=== PATIENT | female | born 1990 | race Caucasian/White ===

== ENCOUNTER 2016-03-28 07:51 | Inpatient (IN) | payer MEDICAID, OTHER ==
[~2016-03-28] VITALS: Ht 165.1 cm; Wt 111.7 kg
[~2016-03-28 07:51] MED LIST: OXYTOCIN 30 UNITS/LR 500 ML BAG IV ONE; PREN1TAB49
[2016-03-28 07:57] VITALS: BP 118/60; PULSE 85; RESP 18
[2016-03-28] MEDS ORDERED: CEFAZOLIN 2 GM/50 ML (PMX) 50 ML IV SCH (08:30)
[2016-03-28] MEDS ORDERED: OXYTOCIN 30 UNITS/LR 500 ML IV SCH (08:30)
[2016-03-28] MEDS ORDERED: OXYTOCIN 30 UNITS/LR 500 ML IV PRN ×2 (08:30→17:30)
[2016-03-28] MEDS ORDERED: METHYLERGONOVINE 0.2 MG INJ IM PRN ×2 (08:30→17:30)
[2016-03-28] MEDS ORDERED: CARBOPROST 250 MCG INJ IM PRN ×2 (08:30→17:30)
[2016-03-28] MEDS ORDERED: MISOPROSTOL 200 MCG TAB PR PRN ×2 (08:30→17:30)
[2016-03-28] MEDS ORDERED: TERBUTALINE 1 MG/ML INJ SC STA (08:36)
[2016-03-28] MEDS ORDERED: TERBUTALINE 1 ML ONE (08:38)
--- NOTE | 2016-03-28 08:44 | RADRPT ---
PROCEDURE: US OB. CLINICAL INDICATION: Contractions , pain TECHNIQUE: Transabdominal views of the pelvis are available for review. COMPARISON: No prior studies are available for comparison. FINDINGS: There is a single intrauterine gestation in a vertex position. The heart rate is present at 150 bpm. The placenta is fundal. There is no evidence of placental abruption or previa.. RPTAT: AA IMPRESSION: Placenta is fundal, grade II. .Quinton Terry MD, MD Date Time Electronically viewed and signed by .Quinton Terry MD, MD on 03/28/2016 08:44 .S/
[2016-03-28] MEDS: LACTATED RINGER'S 1,000 ML IV SCH ×2 (08:45→10:24)
[2016-03-28] MEDS ORDERED: TERBUTALINE 1 MG/ML INJ SC PRN (09:05)
[2016-03-28 09:44] LABS: BASOPHILS % 0.2 % (0.0-2.0); EOSINOPHILS # 0.1 10^3/ul (0.0-0.5); HEMATOCRIT 29.4 % (37.0-47.0); LYMPHOCYTES # 0.9 10^3/ul (0.8-2.9); LYMPHOCYTES % 10.2 % (15.0-51.0); MEAN CORPUSCULAR HEMOGLOBIN 32.1 pg (29.0-33.0); MEAN CORPUSCULAR HGB CONC 34.1 g/dl (32.0-37.0); MEAN CORPUSCULAR VOLUME 94.2 fl (82.0-101.0); MEAN PLATELET VOLUME 9.7 fl (7.4-10.4); MONOCYTE # 0.5 10^3/ul (0.3-0.9); MONOCYTES % 6.2 % (0.0-11.0); NEUTROPHIL # 7.3 10^3/ul (1.6-7.5); NEUTROPHILS % 82.4 % (39.0-77.0); PLATELET COUNT 123 10^3/UL (140-440); RED BLOOD COUNT 3.12 10^6/ul (4.20-5.40); RED CELL DISTRIBUTION WIDTH 13.8 % (11.5-14.5); UNCORRECTED WBC 8.9 10^3/ul (4.8-10.8); WHITE BLOOD COUNT 8.9 10^3/ul (4.8-10.8)
[2016-03-28 09:47] LABS: CONDITION 1
[2016-03-28] MEDS ORDERED: CEFTRIAXONE 2 GM INJ IM ONE (10:00)
[2016-03-28 10:01] LABS: INR 0.97; PROTIME 12.9 Sec (12.2-14.2)
[2016-03-28 10:02] LABS: PARTIAL THROMBOPLASTIN TIME 28.6 Sec (25.0-35.0)
[2016-03-28 10:58] LABS: OPIATES Positive (NEGATIVE)
[2016-03-28 11:07] LABS: BARBITURATES Negative (NEGATIVE); BENZODIAZEPINES Negative (NEGATIVE); COCAINE Negative (NEGATIVE)
[2016-03-28 11:26] LABS: CANNABINOIDS Positive (NEGATIVE)
[2016-03-28 11:46] LABS: ALBUMIN 2.1 g/dl (3.3-4.9)
[2016-03-28 11:47] LABS: POTASSIUM 3.7 mmol/L (3.5-5.1)
[2016-03-28 11:49] LABS: ALBUMIN/GLOBULIN RATIO 0.87; BILIRUBIN,INDIRECT 0.1 mg/dl (0-1.1); BILIRUBIN,TOTAL 0.1 mg/dl (0.2-1.3); CREATININE 0.55 mg/dl (0.44-1.00); TOTAL PROTEIN 4.5 g/dl (6.1-8.1)
[2016-03-28 11:50] LABS: CALCIUM 8.2 mg/dl (8.4-10.2); URIC ACID 4.5 mg/dl (3.1-7.9)
[2016-03-28] MEDS ORDERED: PHENYLephrine (100 MCG/ML) 5ML SYG ONE ×2 (12:09→13:01)
[2016-03-28] MEDS ORDERED: OXYTOCIN 10 UNIT INJ ONE (12:09)
[2016-03-28] MEDS ORDERED: ONDANSETRON 4 MG INJ ONE (12:09)
[2016-03-28] MEDS ORDERED: morphine SULFATE/PF (10 MG/10 ML) INJ ONE (12:09)
[2016-03-28 12:52] LABS: ADD UMIC YES; URINE BILIRUBIN (Dip) NEGATIVE (NEGATIVE); URINE BLOOD (Dip) NEGATIVE (NEGATIVE); URINE COLOR LT. YELLOW (YELLOW); URINE GLUCOSE (Dip) NEGATIVE (NEGATIVE); URINE KETONES (Dip) NEGATIVE (NEGATIVE); URINE LEUKOCYTE ESTERASE (Dip) 1+ (NEGATIVE); URINE NITRITE (Dip) NEGATIVE (NEGATIVE); URINE TOTAL PROTEIN (Dip) NEGATIVE (NEGATIVE); URINE UROBILINOGEN (Dip) 0.2 E.U./dL (0.1-1.0)
[2016-03-28 13:12] LABS: BACTERIA,URINE FEW; URINE RBCS NONE SEEN /HPF (0)
--- NOTE | 2016-03-28 14:42 | TRIAGE ---
OB Triage Datetime Report Generated by CPN: 03/28/2016 14:41 Datetime: 03/28/2016 12:28 Comments: FHT POST ANESTHESIA AT 160 BPM Datetime: 03/28/2016 11:55 Labor Evaluation Frequency: IRREG Monitor Mode: External Duration (sec)2399: 50-90 Pattern: Normal: <= 5 Contractions in 10 Minutes Resting Tone Jagual: Relaxed Heart Rate FHR Baseline Rate: 150 Monitor Mode: External US FHR Baseline Changes: No Baseline Change Variability: Moderate 6-25 bpm Accelerations: 15X15 Decelerations: None Category: Category I Datetime: 03/28/2016 11:11 Labor Evaluation Frequency: IRREG Monitor Mode: External Duration (sec)2399: 50-90 Pattern: Normal: <= 5 Contractions in 10 Minutes Resting Tone Jagual: Relaxed Heart Rate FHR Baseline Rate: 150 Monitor Mode: External US Variability: Moderate 6-25 bpm Accelerations: 15X15 Category: Category I Datetime: 03/28/2016 09:29 Monitor Mode: External Pattern: Normal: <= 5 Contractions in 10 Minutes Resting Tone Jagual: Relaxed Contraction Comments: PT. SLEEPING THROUGH UC'S Heart Rate FHR Baseline Rate: 160 Monitor Mode: External US FHR Baseline Changes: Tachycardia Variability: Moderate 6-25 bpm Accelerations: 15X15 Decelerations: None Category: Category II Pain Assessment Pain Scale: 5 Pain Presence: Intermittent Pain Type: Contraction Pain Location: Abdomen Pain Relief Measures: Comfort Measures Datetime: 03/28/2016 08:40 Labor Evaluation Frequency: 1-5 Monitor Mode: External Duration (sec)2399: 50-70 Quality: Moderate Pattern: Normal: <= 5 Contractions in 10 Minutes Resting Tone Jagual: Relaxed Heart Rate FHR Baseline Rate: 155 Monitor Mode: External US FHR Baseline Changes: No Baseline Change Variability: Moderate 6-25 bpm Accelerations: 15X15 Comments: FHTS NOT ALWAYS ON MONITOR DUE TO PT MOVEMENT Pain Assessment Pain Scale: 9 Pain Presence: Intermittent Pain Type: Contraction Pain Location: Abdomen; Back Pain Relief Measures: Comfort Measures Datetime: 03/28/2016 08:34 Assessment Type: Admission Assessment Vaginal Bleeding: None Maternal Assessment Level of Consciousness: Fully Conscious DTR's/Clonus: DTRs 2+; No Clonus Headache: Denies Blurred Vision: No Respiratory Effort: Unlabored; Regular Rhythm; Equal Expansion Breath Sounds, Left: Clear and Equal Breath Sounds, Right: Clear and Equal Nausea/Vomiting: Denies RUQ Epigastric Pain: Denies Lower Extremities Edema: None Degree: None Upper Extremities Edema: None Degree: None Facial Edema: None Fall Risk Assessment History of Falling: (0) No Secondary Diagnosis: (0) No Ambulatory Aid: (0) Bedrest/Nurse Assist IV Therapy: (20) Yes Gait: (0) Normal/Bedrest/Immobile Mental Status: (0) Oriented to Own Ability Fall Score: 20 Fall Risk Score Definition: No Risk: No action required Labor Evaluation Frequency: 2-5 Duration (sec)2399: 60-90 Pattern: Normal: <= 5 Contractions in 10 Minutes Resting Tone Jagual: Relaxed Heart Rate FHR Baseline Rate: 150 Variability: Moderate 6-25 bpm Accelerations: 15X15 Decelerations: None Category: Category I Pain Assessment Pain Scale: 8 Pain Presence: Intermittent Pain Type: Contraction Pain Location: Abdomen Membrane Status: Intact Datetime: 03/28/2016 08:03 Vaginal Exam Dilatation (cms): 3.0 Effacement (%): 90 Station: -2 Exam By: CK Vaginal Bleeding: None Cervix, Consistency: Soft Cervix, Position: Midposition Datetime: 03/28/2016 07:56 Assessment Type: Triage Maternal Assessment Level of Consciousness: Fully Conscious DTR's/Clonus: DTRs 2+; No Clonus Headache: Denies Blurred Vision: No Respiratory Effort: Unlabored; Regular Rhythm; Equal Expansion Breath Sounds, Left: Clear and Equal Breath Sounds, Right: Clear and Equal Nausea/Vomiting: Denies RUQ Epigastric Pain: Denies Lower Extremities Edema: Bilateral Lower Extremities Degree: 1+ Upper Extremities Edema: Bilateral Upper Extremities Degree: 1+ Facial Edema: None Fall Risk Assessment History of Falling: (0) No Secondary Diagnosis: (0) No Ambulatory Aid: (0) Bedrest/Nurse Assist IV Therapy: (0) No Gait: (0) Normal/Bedrest/Immobile Mental Status: (0) Oriented to Own Ability Fall Score: 0 Fall Risk Score Definition: No Risk: No action required Datetime: 03/28/2016 07:52 Time of Arrival: 03/28/2016 07:40 EGA: 38.0 Arrived By: Ambulance Arrived From: Emergency Dept Chief Complaint: UC Movement: Present Contractions: Regular Time Contractions Began: 03/28/2016 04:00 Contractions: 7-10 Rupture of Membranes: Denies Vaginal Bleeding: Normal Show Vaginal Discharge: Present Recent Sexual Intercouse: Denies Abdominal Trauma: Not Applicable Patient Complaints: Contractions Time Provider Notified: 03/28/2016 08:12 Provider Notified: [facility] Initial Plan: EFMx2, SVE Membranes Ruptured Date/Time: 03/28/2016 12:51 Membranes Rupture Method: Artificial Amniotic Fluid Color: Light Meconium Amniotic Fluid Amount: Moderate Amniotic Fluid Odor: None Presentation 'A': Cephalic Datetime: 03/28/2016 07:51 Stage of : OB Triage
--- NOTE | 2016-03-28 15:01 | HP ---
Date/Time of Note Date/Time of Note DATE: 03/28/16 TIME: 12:11 OB - History Hx of Present Free Text/Dictation 25 years old white female 6 para 4 P0 00 admitted to [facility] at 38 weeks of with a history of 5 previous C- section in active labor pelvic exam on admission cervix 3 cm 80% vertex at -2 station patient is being prepared to undergo repeat for the 6th time. This patient has had no care except one time at [facility] which the record of that visit indicate positive urine test for amphetamine barbiturate, benzodiazepine, cocaine metabolites MariJoanna metabolite, methadone opiates phencyclidine propoxyphene and ethanol. background Blood type O positive beta strep unknown, RPR nonreactive rubella immune, HIV negative drug/alcohol us , negative for cocaine/crack use positive for marijuana positive for illicit drug use, positive for methamphetamines. Medical history, no diabetes no -induced hypertension. negative other than any other previous medical or surgical conditions Infectious history, positive for gonorrhea negative for chlamydia syphilis HIV or HPV genital herpes tuberculosis hepatitis B and C no traveling to foreign countries during the past month Genetic history unremarkable'. Patient has been counseled regarding her for the sixth of complication may arise from the surgery including bowel bladder injury infection hemorrhage wound hematoma and wound infection she was questions regarding tubal ligation at the time of her section she had not signed consent for this procedure so, there would be no tubal ligation Chief Complaint: labor pain Estimated Due Date: Apr 11, 2016 : 6 Para: 5 Spontaneous : 0 Therapeutic : 0 Care: None Obstetrical Complications: Other (Unknown) Medical Complications: None Past Family/Social History * Past Medical, Surgical, Family and Obstetric Histories reviewed from chart. Rubella: immune RPR/VDRL: Negative GBS Status: Negative HBsAG: Negative OB Admission Exam Vital Signs Vital Signs 5 feet 5 inches 246 pounds total weight gain during the 48 Vital Signs Date Time Temp Pulse Resp B/P Pulse Ox O2 Delivery O2 Flow Rate FiO2 03/28/16 07:57 97.5 85 18 118/60 99 Room Air Physical Exam HEENT: WNL Heart: Rhythm Normal Lungs: Clear, Equal Abdomen: Abnormal (38 cm from fundus of the uterine to the upper border of symphysis pubis) Extremities: Normal Reflexes: Normal Cervical Dilatation: 3cm Effacement: 50% Station: -2 Membranes: Intact Heart Rate: 150's Decelerations: Early Decelerations Varibility: Moderate Contractions on Admission: < 5 Minutes Apart Intensity: Moderate Last 72 hours Lab Results CBC & BMP 03/28/16 09:27 Liver Function Test 03/28/16 09:27 Alanine Aminotransferase (ALT/SGPT) 18 Albumin 2.1 L Alkaline Phosphatase 117 Aspartate Amino Transf (AST/SGOT) 23 Direct Bilirubin 0.00 Total Protein 4.5 L EMMANUEL ROCHA MD Mar 28, 2016 14:48
--- NOTE | 2016-03-28 16:14 | OPR ---
DATE OF OPERATION: 03/28/2016 PREOPERATIVE DIAGNOSES: 1. Intrauterine at 38 weeks gestation. 2. History of 5 previous section, in active labor. POSTOPERATIVE DIAGNOSES: 1. Intrauterine at 38 weeks gestation. 2. History of 5 previous section, in active labor. OPERATION PERFORMED: Repeat transverse low cervical section, extensive adhesiolysis. SURGEON: Emmanuel Worthy MD RN INFORMATICS: Mike Crocker MD ANESTHESIA: Spinal. ANESTHESIOLOGIST: Kirill Mckay MD FINDINGS: Live baby boy with the 8 and 9. Nuchal cord x1 which the amniotic fluid meconium s tained. DETAILS OF THE PROCEDURE: Under satisfactory spinal anesthesia, the patient was prepped and draped and placed in supine position, tilted to the left. Pfannenstiel incision was made and incision elizondo ied through the subcutaneous tissue. Bleeders brought under control with electrocautery. Fascia in cised to the length of the incision. Rectus muscle divided in midline. Peritoneum exposed, entered through a transverse incision. Upon entry into the abdominal cavity, there was some adhesion betwe en the omentum and anterior uterine wall which was taken down with sharp and blunt dissection. Lowe r segment of the uterus was cleared from the adhesions. Bladder flap was developed. Transverse inc ision was made in the lower segment of the uterus. Amniotic sac ruptured. Meconium stained amnioti c fluid noted. Live baby boy was delivered from occiput posterior, wedged in. Shoulders delivered without any difficulty. Baby had a nuchal cord x1. Nasal oropharyngeal suction was performed. Bab y handed to the team for immediate attention. The patient received 20 units of Pitocin. P lacenta delivered manually intact. Uterine cavity cleaned with wet sponge and drainage established. Uterus closed in 2 layers using Monocryl #1 in continuous fashion. Peritoneal cavity irrigated wi th warm saline. Sponge, needle and instrument reported to be correct. Abdominal peritoneum closed with 2-0 chromic catgut continuously. Rectus muscle approximated with few interrupted 2-0 chromic c atgut. Fascia closed with #1 PDS in a continuous fashion. Subcutaneous tissue approximated with se veral interrupted 2-0 chromic catgut. Skin closed with lane. Estimated blood loss 700 mL. Urin e bag contained 200 to 300 mL of clear urine. The patient tolerated the procedure well, transferred to the recovery room in good condition. Dictated By: EMMANUEL WORTHY MD HF/NTS Conf#: [id number] [facility]#: [id number]
[2016-03-28] MEDS ORDERED: morphine 2 MG INJ IV PRN (16:30)
[2016-03-28] MEDS ORDERED: NALOXONE (0.4 MG/ML) INJ IV PRN (16:30)
[2016-03-28] MEDS ORDERED: DIPHENHYDRAMINE 50 MG INJ IV PRN (16:30)
[2016-03-28] MEDS ORDERED: ONDANSETRON 4 MG INJ IV PRN (16:30)
[2016-03-28 17:20] VITALS: BP 105/74; PULSE 67; RESP 17
[2016-03-28] MEDS ORDERED: CEFAZOLIN 1 GM/50 ML (PMX) 50 ML IVPB SCH ×2 (17:30→21:00)
[2016-03-28] MEDS ORDERED: LANOLIN 7 GM TUBE TOP PRN (17:30)
[2016-03-28] MEDS ORDERED: ACETAMINOPHEN/CODEINE #3 TAB PO PRN ×2 (17:30)
[2016-03-28] MEDS ORDERED: OXYCODONE/ACETAMINOPHEN (5/325) TAB PO PRN (17:30)
[2016-03-28] MEDS: OXYTOCIN 30 UNITS/LR 500 ML IV SCH ×2 (18:16→23:37)
[2016-03-28 20:00] VITALS: BP 103/62; PULSE 83; RESP 20
[2016-03-28] MEDS: KETOROLAC 30 MG INJ IV PRN ×2 (22:33→23:38)
[2016-03-28] MEDS: SENNA/DOCUSATE NA (8.6MG/50MG) TAB PO SCH (22:33)
[2016-03-29 00:36] VITALS: BP 117/72; PULSE 80; RESP 18
[2016-03-29 04:00] VITALS: BP 117/66; PULSE 90; RESP 20
[2016-03-29] MEDS: OXYTOCIN 30 UNITS/LR 500 ML IV SCH ×5 (04:00→21:24)
[2016-03-29] MEDS: KETOROLAC 30 MG INJ IV PRN ×2 (04:01→14:30)
[2016-03-29 08:15] VITALS: BP 118/72; PULSE 97; RESP 20
[2016-03-29] MEDS: SENNA/DOCUSATE NA (8.6MG/50MG) TAB PO SCH ×2 (08:26→21:55)
[2016-03-29 08:27] LABS: BASOPHILS % 0.1 % (0.0-2.0); EOSINOPHILS # 0.1 10^3/ul (0.0-0.5); EOSINOPHILS % 0.6 % (0.0-7.0); HEMATOCRIT 28.1 % (37.0-47.0); HEMOGLOBIN 9.5 g/dl (12.0-16.0); LYMPHOCYTES # 0.7 10^3/ul (0.8-2.9); LYMPHOCYTES % 5.8 % (15.0-51.0); MEAN CORPUSCULAR HEMOGLOBIN 32.1 pg (29.0-33.0); MEAN CORPUSCULAR HGB CONC 33.9 g/dl (32.0-37.0); MEAN CORPUSCULAR VOLUME 94.7 fl (82.0-101.0); MEAN PLATELET VOLUME 9.2 fl (7.4-10.4); MONOCYTE # 0.6 10^3/ul (0.3-0.9); MONOCYTES % 4.9 % (0.0-11.0); NEUTROPHILS % 88.6 % (39.0-77.0); PLATELET COUNT 138 10^3/UL (140-440); RED BLOOD COUNT 2.97 10^6/ul (4.20-5.40); RED CELL DISTRIBUTION WIDTH 13.7 % (11.5-14.5); UNCORRECTED WBC 12.4 10^3/ul (4.8-10.8); WHITE BLOOD COUNT 12.4 10^3/ul (4.8-10.8)
[2016-03-29 08:36] LABS: CONDITION 1
[2016-03-29 11:40] VITALS: BP 114/78; PULSE 102; RESP 21
[2016-03-29 16:45] VITALS: BP 110/75; PULSE 95; RESP 20
[2016-03-29] MEDS: IBUPROFEN 600 MG TAB PO SCH (18:20)
[2016-03-29 20:00] VITALS: BP 119/70; PULSE 104; RESP 18
[2016-03-29] MEDS: OXYCODONE/ACETAMINOPHEN (5/325) TAB PO PRN (21:55)
[2016-03-30] MEDS: IBUPROFEN 600 MG TAB PO SCH ×4 (00:36→18:32)
[2016-03-30] MEDS: OXYTOCIN 30 UNITS/LR 500 ML IV SCH ×3 (01:24→09:21)
[2016-03-30 04:00] VITALS: BP 117/62; PULSE 96; RESP 20
[2016-03-30 09:00] VITALS: BP 113/61; PULSE 94; RESP 18
[2016-03-30] MEDS: SENNA/DOCUSATE NA (8.6MG/50MG) TAB PO SCH ×2 (09:16→21:48)
[2016-03-30] MEDS: OXYCODONE/ACETAMINOPHEN (5/325) TAB PO PRN (11:59)
[2016-03-30 15:52] VITALS: BP 121/69; PULSE 94; RESP 16
[2016-03-30 19:45] VITALS: BP 118/64; PULSE 100; RESP 18
[2016-03-31] MEDS: IBUPROFEN 600 MG TAB PO SCH ×3 (00:24→12:06)
[2016-03-31 04:00] VITALS: BP 110/70; PULSE 97; RESP 19
[2016-03-31 08:48] VITALS: BP 124/77; PULSE 86; RESP 14
[2016-03-31] MEDS: SENNA/DOCUSATE NA (8.6MG/50MG) TAB PO SCH (09:00)
[2016-03-31] MEDS ORDERED: DIPHTH/TET/ACEL PERTUSS (ADULT) 0.5 ML VIAL IM* ONE (09:00)
--- NOTE | 2016-03-31 14:01 | PD.PPDC ---
MANAGER ACCESS Discharge Instruction Condition Patient Condition: Good Diet Diet: Resume Regular Diet Activity/Restrictions Activity: Normal Activity Bedrest May be up to bathroom May be up for meals May Shower Restrictions: No Exercising No Lifting No Driving No Sexual Activity Nothing in the Vagina No [place] No Tampons, douche Wound/Drain Care Instructions Wound/Drain Care Instructions: Remove Steri Strips in 1 week Follow-up Follow-up with Physician: 4, Day/Days Return to clinic for FRAME OPENER Instructions: Fever greater than 101 Worsening abdominal pain More than 2 pads per hour OB Instructions: Breast Tenderness Blurried Vision Headache Surgical Instructions: Incisional Drainage Incisional Redness EMMANUEL ROCHA MD Mar 31, 2016 14:01
--- NOTE | 2016-03-31 14:06 | DS ---
Date/Time of Note Date/Time of Note DATE: 03/31/16 TIME: 14:03 Obstetrical Discharge Record Final Diagnosis Final Diagnosis: Term delivered Section Section: Repeat Condition on Discharge Physical Assessment Last Vitals: Vital sign stable, afebrile, abdomen soft, incision inspected dry and clean, bowel sounds present, no problem with urination and bowel movement, discharged home with follow-up instruction to make appointment at the clinic in [address] Voiding: Yes Bowel Movement: Yes Breast: Soft, non-tender Fundus: Firm Abdomen and Incision: Dry healing well free of inflammation Calf Tenderness: No Patient Condition: Good EMMANUEL ROCHA MD Mar 31, 2016 14:06
== END 2016-03-31 16:09 | disposition home or self-care (01) | DRG 766 ==
LOC: L-D 07:51 → OBT 07:51 → L-D 08:34 → PP1 17:25
PROVIDERS: ADMIT Obstetrics & Gynecology; ATTEND Obstetrics & Gynecology
PROC: 0UN90ZZ Release Uterus, Open Approach (ICD-10-PCS; 2016-03-28)
PROC: 10D00Z1 Extraction of Products of Conception, Low, Open Approach (ICD-10-PCS; principal; 2016-03-28 13:00)
DX: O80 Encounter for full-term uncomplicated delivery (principal); N73.6 Female pelvic peritoneal adhesions (postinfective); O34.211 Maternal care for low transverse scar from previous cesarean delivery; O69.81X0 Labor and delivery complicated by cord around neck, without compression, not applicable or unspecified; O99.89 Other specified diseases and conditions complicating pregnancy, childbirth and the puerperium; O77.0 Labor and delivery complicated by meconium in amniotic fluid; Z3A.38 38 weeks gestation of pregnancy; Z37.0 Single live birth
CPT/HCPCS: 76815; 80053; 80307; 81001; 81003; 82947; 84560; 85025; 85610; 85730; 86592; 86850; 86900; 86901; 86920; 87340; 90715; 94760; 99464; G0463; J0690; J1885; J2274; J2370; J2405; J2590; J3105; J7120

== ENCOUNTER 2018-04-08 19:41 | Emergency (ER) | payer SELFPAY ==
[~2018-04-08] VITALS: Ht 165.1 cm; Wt 81.6 kg
[~2018-04-08 19:41] MED LIST changes: -OXYTOCIN 30 UNITS/LR 500 ML BAG IV ONE
[2018-04-08 20:17] VITALS: BP 132/72; PULSE 91; RESP 19; Ht 165.1 cm; Wt 81.6 kg
== END 2018-04-08 23:10 | disposition left against medical advice (07) ==
LOC: FTE 19:41
DX: Z53.21 Procedure and treatment not carried out due to patient leaving prior to being seen by health care provider (principal)